=== PATIENT | female | born 1985 | race Caucasian/White ===

== ENCOUNTER → 2021-01-26 10:44 | Outpatient (BNVA) | payer OTHER, SELFPAY | PROVIDERS: PCP Nurse Practitioner Family; Visit Provider Obstetrics & Gynecology | DX: Z01.812 Encounter for preprocedural laboratory examination (principal); E28.2 Polycystic ovarian syndrome; N93.9 Abnormal uterine and vaginal bleeding, unspecified | CPT/HCPCS: 87635 ==

== ENCOUNTER 2021-02-02 11:12 | Observation (INO) | payer OTHER, SELFPAY ==
[2021-01-10 12:01] VITALS: BMI 40.6
--- NOTE | 2021-01-10 14:49 | P.ANESASSM_ITS ---
Pre-Anesthetic Assessment Pre-Anesthetic Assessment: Height/Weight: Height 1.63 m Weight 107.501 kg Proposed Procedure: Operation Date: 02/02/21 07:00 Proposed Procedures p Laparoscopic assisted vaginal hysterectomy with bilateral salpingectomy (79709) N93.9 E28.2(Not Applicable) - John Barroso MD Was Beta Rhett taken within 24 hours: N/A Social: Social History: No alcohol and No tobacco Exam: Pre-Anes Outpt Exam: alert, oriented x 3, clear to auscultation bilaterally and regular rate & rhythm Airway: Submandibular: WNL Cervical ROM: WNL MP: 2 Dentition: Full Metabolic: Metabolic: Morbid obesity Neuropsych: Neuropsych: Depression Anesthetic Plan: ASA status: 2 Anesthesia: General Other: H/O PONV Risk of > 500 ml blood loss (7ml/kg in children): Yes, adequate IV access and fluids planned PFSH Anesthesia PFSH: Medical History Anxiety and depression Diagnosed in 2016 and is on Prozac managed by her primary care provider No pertinent past medical history Denies diabetes, asthma, hypertension, seizures, DVT/PE PCP: Dr. Chen PCOS (polycystic ovarian syndrome) Diagnosed with PCOS in 2013 as she had oligomenorrhea and increased hair growth. She was placed on metformin in December 2014 which she self discontinued in April 2015. --- 06/22/2019-TSH 1.48, prolactin-8.3-normal -Sonogram on 07/01/2019-----> enlarged multi follicular ovaries consistent with PCOS, normal uterus Surgical History S/P carpal tunnel release Right side, outpatient by Dr. Montenegro S/P laparoscopy with hysteroscopy/dilation and curettage Done on 09/16/[address] Navas at the [facility] for evaluation of pelvic pain, dyspareunia, DUB. Operative report has been obtained and reviewed. On laparoscopy no intra-abdominal pathology was identified and free spillage of dye was noted from bilateral tubes. Ovaries had typical appearance of PCOS per Dr. Navas. On hysteroscopy no endocervical or endometrial abnormalities were identified. D&C was performed. Pathology of D&C showed benign proliferative endometrium without atypia, hyperplasia or malignancy. Fragments of benign rectal and endocervical tissue was also identified. (The operative report has been scanned in to the EHR) S/P tympanostomy tube placement at age 5 or 6 Status post tonsillectomy and adenoidectomy at age 5 or 6. Performed in [place] per patient. Family History (Updated 12/11/20 @ 11:07 by John Barroso MD) Family/Other Colon cancer paternal great grandmother, diagnosed in her 50s Uterine cancer maternal aunt, age at diagnosis unknown Mother Hypertension Grandmother Stroke paternal Thyroid condition paternal Diabetes paternal Uterine cancer maternal, diagnosed in her 30s Grandfather Diabetes paternal Father Hyperlipidemia Diabetes Hypertension Denies family history of Ovarian cancer Heart disease Breast cancer Social History Smoking and tobacco status: never smoked Female Reproductive History: Date of last menstrual period: 10/30/20 Data Anesthesia Cardiac Studies: No Data to Display
[2021-02-02] VITALS (21 sets, daily range): BP systolic 80–159; BP diastolic 66–126; PULSE 85–109; RESP 9–21; TEMP 36.3–37.2; O2SAT 90–98
[2021-02-02 06:12] LABS: OR HCG Qualitative Urine Negative (Negative)
[2021-02-02] MEDS: scopolamine 1.5 Patch 1 PATCH TRANSDERMA (06:28)
--- NOTE | 2021-02-02 06:30 | P.ANESUD_ITS ---
Pre-Anesthetic Update Pre-Anesthetic Assessment: Date of Surgery/Procedure: 02/02/21 Preop Mouna gnosis: AUB Proposed Procedure: Operation Date: 02/02/21 07:00 Proposed Procedures p Laparoscopic assisted vaginal hysterectomy with bilateral salpingectomy (78767) N93.9 E28.2(Not Applicable) - John Barroso MD Any changes to Pre-Anesthetic Assessment?: No Last Intake: Intake Last Liquid Date 02/01/21 Last Liquid Time 19:30 Last Solid Date 02/01/21 Last Solid Time 19:30 Labs Last 48hrs: Laboratory Results - last 48 hr 02/02/21 06:00 Urine HCG, Qual Negative Vitals: Temperature 97.4 F L 02/02/21 06:17 Temperature Source Temporal Artery S can 02/02/21 06:17 Pulse Rate 92 02/02/21 06:17 Respiratory Rate 16 02/02/21 06:17 Blood Pressure 132/82 02/02/21 06:17 Blood Pressure Deena n 98 02/02/21 06:17 Oxygen Delivery Me thod 02/02/21 06:17 Exam: Pre-Anes Outpt Exam: alert, oriented x 3, clear to auscultation bilaterally and regular rate & rhythm Cardiac Studies: No Data to Display
[2021-02-02] MEDS: sodium chloride 0.9% 1,000 ML 30 ML IV (06:35)
[2021-02-02] MEDS: diphenhydrAMINE 50 mg/mL SDV 1mL 12.5 MG IVP (06:40)
--- NOTE | 2021-02-02 06:55 | P.HPUD_ITS ---
Surgery/Procedure H&P Update DATE OF PROCEDURE: February 02, 2021 DATE H&P PERFORMED: 01/10/21 H&P UPDATE INFORMATION: I have reviewed H&P completed within last 30 days, I have examined patient prior to procedure, No changes to prior documentation and H&P is in [facility] EMR on date indicated PREOP DIAGNOSIS: AUB PLANNED PROCEDURE: Operation Date: 02/02/21 07:00 Proposed Procedures p Laparoscopic assisted vaginal hysterectomy with bilateral salpingectomy (81111) N93.9 E28.2(Not Applicable) - John Barroso MD
[2021-02-02 06:56] LABS: Basophils % 0.4 %; Eosinophils # 0.1 10^3/uL (0.0-0.8); Eosinophils % 1.4 %; Hematocrit 41.2 % (37.0-47.0); Hemoglobin 13.6 g/dL (11.5-15.3); Lymphocytes # 1.6 10^3/uL (0.8-4.8); Lymphocytes % 28.1 %; Mean Corpuscular Hemoglobin 28.6 pg (28.0-34.0); Mean Corpuscular Volume 86.6 fL (81-99); Mean Platelet Volume 9.9 fL (7.4-10.4); Monocytes # 0.5 10^3/uL (0.2-0.9); Neutrophils # 3.46 10^3/uL (1.8-7.7); Neutrophils % 61.6 %; Nucleated Red Blood Cells % 0 %; Platelet Count 197 10^3/cmm (130-400); Red Blood Count 4.76 10^6/uL (4.1-5.3); Red Cell Distribution Width 12.6 % (12.1-15.1); White Blood Count 5.6 10^3/uL (4.0-10.0)
--- NOTE | 2021-02-02 07:59 | SUR.OPER ---
notified of start and surgical progress
[2021-02-02] MEDS: vasopressin 20 unit/mL INJ (08:23)
[2021-02-02] MEDS: fentaNYL 50 mcg/mL INJ 2mL IVP (10:30)
--- NOTE | 2021-02-02 10:32 | P.OP_ITS ---
Operative Report Date of procedure: February 02, 2021 OPERATIVE REPORT Date of surgery: 02/02/2021 Date of dictation: 02/02/2021 Preoperative diagnosis: AUB, PCOS Postoperative diagnosis/findings: 8-week size anteverted bulky uterus, normal tubes and ovaries bilaterally, no intra-abdominal lesions, on cystoscopy no lesions defects or suture noted, bilateral ureteral jets x4 noted. Procedure done: Laparoscopic assisted vaginal hysterectomy, bilateral salpingectomy, cystoscopy Specimens removed/disposition of specimens: Uterus, cervix bilateral fallopian tubes Surgeon: Dr. John Alberto account management assistant: Sabina Palomares Anesthesia: General endotracheal tube anesthesia Estimated blood loss: 400 ml Intravenous fluids: 1 L of LR Urine output: 200 mL of clear urine at the end of procedure Medications: Per anesthesia records Complications:none PROCEDURE: After consents were obtained, she was taken to the operating room where she was placed under general endotracheal tube anesthesia without any difficulty. She was placed supine on the table in lithotomy position. Her legs were placed in stirrups and care was taken to avoid pressure points. Exam under anesthesia revealed [default value]. She was then prepped and draped in usual sterile fashion. Weighted speculum and anterior wall retractors were placed in the vagina, cervix visualized and grasped with a tenaculum. ZUMI uterine manipulator was placed into the uterus without any difficulty. Talamantes Catheter was placed, instruments were removed from the vagina and the legs were lowered. Attention was turned towards the abdomen where half percent Marcaine with epinephrine was injected in to her umbilicus. A 10 mm skin incision was made and a 10 mm port was placed through the umbilicus using an open technique--fascia was visualized elevated cut sharply and peritoneum was entered bluntly digitally and no adhesions were noted around site of entry. Everett trocar was placed and attached to fascia.. Once intra-abdominal entry was confirmed gas was turned on and intra-abdominal opening pressure was 2. The abdomen is insufflated until the pressure was 13. Survey of the abdomen showed findings noted above.. No other gross abnormality were identified. Two 5 mm trocar was placed into the right and left lower quadrant under direct visualization after injecting Marcaine. A 5 mm LigaSure was introduced into the abdomen and the left ovarian ligament was clamped, cauterized and then cut. No bleeding was noted. The voyant was used clamp cauterize and then cut the broad ligament under the fallopian tube and proceeding inferiorly just lateral to the uterus. The round ligament was also clamped, cauterized and cut. In this way the left fallopian tube, ovary and left side of the uterus was from the parametria. This was continued to the level just above the cervix. The same procedure was repeated on the right side and using the voyant -the right ovarian ligament, fallopian tube and round ligament were grasped, cauterized and cut. Good hemostasis was noted.The right-side of the uterus was thus freed from the parametria in a similar fashion. The ureters were visualized bilaterally well away from site of surgery. Next the anterior bladder flap was created and the bladder was pushed down. The uterine artery on both sides were visualized, clamped and cauterized. She did have some oozing near the site of left uterine artery near the lower uterine segment and decision was made to obtain hemostasis at this point vaginally. At this point all instruments were taken out of the abdomen, gas was turned off, abdomen was covered with a sterile drape and attention was turned towards the vagina. Patient's legs were raised, weighted speculum placed and cervix was grasped on the anterior and posterior lips with single-toothed tenaculum. 4 Units of Pitressin diluted in 10 mL of saline was injected around the cervix for hydrodissection on all sides. A scalpel was used to make an incision starting posteriorly and then extending anteriorly around the cervix. Perry scissors was then used to separate the overlying tissue from the cervix. The overlying tissue was also pushed back bluntly using a 4 x 4 gauze. Attention was turned posteriorly where pickups with teeth and Metzenbaum scissors was used to grasp the peritoneum and peritoneal cavity was entered. This peritoneal incision was extended laterally using the Metzenbaum scissors. A long weighted speculum was placed intraperitoneally thus protecting the rectum. Dave-[place] clamps we re used first on the right and then the left to clamp and then cut the paracervical tissue. Then we clamped, cut and sutured both right and left uterosacral ligaments with a Dave clamp. This process was repeated again proceeding up the cervix. The bladder was held up, peritoneum was identified and intraperitoneal entry anteriorly was made. A vaginal retractor was placed into the peritoneum thus protecting the bladder from site of surgery. Care was taken to stay medial and to avoid the bladder. The next bite that was placed clamped and then cut the already cauterized uterine artery on the right and then on the left side. These pedicles were were tied and the stitches were cut. Good hemostasis was achieved. With this, the uterus, bilateral tubes and ovaries, was freed, taken out and sent to pathology. The pedicles in the pelvis was visualized and good hemostasis was noted. The posterior vaginal cuff was noted to be bleeding and was oversewn , attaching the peritoneum to the vaginal cuff with 0 Vicryl in a continuous interlocking fashion. Good hemostasis was achieved. Cystoscopy was performed with a 70? cystoscope and bilateral ureteral jets were visualized x 3 as well as no suture , lesion or defect was noted in the bladder wall or urethra. Cystoscope was removed, bladder drained and Talamantes catheter was replaced. The angles of the vaginal cuff were grasped with Allis clamps and the angles were held in place. 0 Vicryl was used to close the vaginal cuff in a horizontal fashion using interrupted [id number] sutures. The vaginal cuff was closed and no defects were noted attention was turned to the Vicryl sutures holding the uterosacral ligaments. The sutures were right and left uterosacral ligaments were tied together thus suspending the apex of the vagina. Good support was noted. Attention was turned towards the abdomen at this time and patient's legs were lowered. Abdomen was insufflated to a pressure of 13 and the camera was placed in the abdomen. Sites of surgery were visualized and were noted to be hemostatic. The vaginal cuff was intact and no bowel or omentum was noted to be involved with the vaginal cuff suture line. Surgicel was placed over the vaginal cuff. Good hemostasis was noted. All instruments removed from the abdomen and the abdomen was desufflated. Trochars were removed with the blunt probe in place. The fascia on the umbilicus was closed with 0 Vicryl on a UR needle and good approximation was obtained. The skin incision on all 3 ports was closed with 4-0 Monocryl in a subcuticular fashion. Good reapproximation and hemostasis was noted. Marcaine was injected on the port sites. The incisions were dressed with Steri-Strips, Telfa and Tegaderm. 1 inch vaginal packing with lubrication was placed into the vagina. A Talamantes cat heter was kept in place. The patient was extubated without any difficulty and taken to the recovery room in a stable condition. This documentation was created by [employer] print designer software (known for inherent print designer error). Every effort was made to assure accuracy of print designer. Any obvious errors or omissions should be clarified with the author of the document. Pre-op Diagnosis: AUB
--- NOTE | 2021-02-02 11:36 | SUR.PHASEI ---
1021 PT TO PACU SLEEPING WITH ORAL AIRWAY IN PLACE, GOOD RESP EFFORT NOTED, VSS ABD LARGE SOFT VILLELA TO DD WITH STATLOCK TO RT THIGH YELLOW URINE NOTED IN BAG AND TUBING, 1030 PT AWAKE RESTLESS, CRYING OUT C/O OF PAIN TO ABD OF 9 SEE MED GIVEN 1045 PT SEDATED SINCE FENTANYL, MANUAL ASSIST TO KEEP AIRWAY OPEN, PT AWAKES, ELIZABETH OUT THAT PAIN IS UNBEARABLE THEN BACK TO SLEEP SNORING AND OBSTUCTS, MANUAL ASSIST USED TO KEEP AIRWAY OPEN THEN PT AWAKES AND STATES PAIN IS 10 THEN BACK TO SLEEP
--- NOTE | 2021-02-02 11:39 | SUR.PHASEI ---
1105 IF PT NOT DISTURBED PT SLEEPS AND SNORING RESP , BUT PT AWAKES TO BP OR VOICE AND RATES PAIN (UNBEARABLE) THEN QUICKLY BACK TO SLEEP REPORT CALLED TO FLOOR AND PT TO GET PO PAIN MED ON ADMIT, PT OK WITH THIS PLAN, PT ON 3LNC TO KEEP SATS AT 93-94% VSS.
[2021-02-02] MEDS: ibuprofen 800 mg tablet PO ×2 (11:49→18:28)
[2021-02-02] MEDS: HYDROcodone-acetaminophen 5-325 mg Tablet PO ×2 (11:50→21:58)
[2021-02-02] MEDS: dextrose 5%-lactated ringers 1,000 ML 125 ML IV ×2 (11:51→18:28)
[2021-02-02] MEDS: ondansetron 2 mg/ML SDV 2 mL 4 MG IVP ×2 (14:25→18:39)
[2021-02-02] MEDS: morphine 4 mg/mL SDV 1 mL 2 MG IVP (14:55)
--- NOTE | 2021-02-02 15:21 | ANE.PACU2 ---
Inpatient post-anesthesia follow up: Airway intact: Yes Vital signs: Temperature 97.9 F Pulse Rate 91 Respiratory Rate 16 Blood Pressure 135/98 Pulse Oximetry 95 Oxygen Delivery Me thod Nasal Cannula Oxygen Flow Rate 2 Fraction of Inspir ed Oxygen Hydration adequate: Yes Nausea and vomiting: No Pain level: 2 Mental status: Baseline
[2021-02-02] MEDS: docusate sodium 100 mg Capsule PO (18:28)
--- NOTE | 2021-02-02 18:38 | PC.NURSE ---
Vaginal packing removed. Very minimal bleeding noted.
[2021-02-02] MEDS: promethazine 25 mg/mL SDV 1 mL IM (21:58)
[2021-02-03] MEDS: ibuprofen 800 mg tablet PO ×2 (03:12→11:30)
--- NOTE | 2021-02-03 06:28 | PM.DCS ---
Discharge Providers Date of Admission: 02/02/21 11:12 Date of Discharge: February 03, 2021 Attending Provider at Admission: John Barroso MD Attending Provider at Discharge: John Barroso MD - Admission DIAGNOSIS: Abnormal uterine bleeding desiring surgical intervention Obesity with a BMI of 40 Anxiety and depression on medication, PCOS Discharge DIAGNOSIS: Status post LAVH, bilateral salpingectomy and cystoscopy on 02/02/2021 PROCEDURE: LAVH, bilateral salpingectomy and cystoscopy on 02/02/2021 Hospital course: She underwent an uncomplicated LAVH, bilateral salpingectomy and cystoscopy on 02/02/2021. She did well on postoperative day 0 and was ambulating well, tolerating clear liquid diet. Pain was well-controlled with by mouth and IV pain medication. She denied nausea, vomiting, fever, chills, shortness of breath, leg pain. She had minimal vaginal bleeding. Talamantes catheter was kept overnight and she had adequate urine output. On postoperative day #1 she continued to do well with stable vital signs and stable hemoglobin at 12.4. Talamantes catheter was removed and patient was able to void with minimal residual noted on bladder scan. She ambulated well started passing flatus and then tolerated a regular diet. She was discharged home on postoperative day #1 in a stable condition. Warning signs for wound infection, cuff infection, DVT/PE were reviewed with her. Post surgical activity restrictions were also reviewed with her at all her questions were answered to her satisfaction. This documentation was created by [employer] loin trimmer software (known for inherent loin trimmer error). Every effort was made to assure accuracy of loin trimmer. Any obvious errors or omissions should be clarified with the author of the document. Primary Care Provider: MARC Sevilla Reason for Visit Reason for Visit: Laparoscopic assisted vaginal hysterectomy with bi Physical Exam Urinary Catheter Management^: Talamantes: Cath Placed During This Visit: yes, but has since been removed by the nurse Reason for Continuing Indwelling Catheter: Perioperative Use in Selected Surgeries Urinary Catheter Date of Insertion: 02/02/21 Urinary Catheter Time of Insertion: 07:43 Date Urinary Catheter Removed: 02/03/21 Time Urinary Catheter Discontinued: 03:20 Discharge Data Data Completed and Pending: Pending at discharge Category Date Time Status ES surgery / GI i mages Routine Exams 02/02/21 06:41 Ordered Complete Blood Co unt w/Auto Timed Lab 02/03/21 05:35 Ordered Hemagram Timed Lab 02/03/21 05:00 Ordered Pathology: Surgic al [PTH] Routine Pth 02/02/21 09:52 Received Labs from last 24 hours 02/02/21 02/02/21 06:37 06:37 WBC 5.6 RBC 4.76 Hgb 13.6 Hct 41.2 MCV 86.6 MCH 28.6 MCHC 33.0 RDW 12.6 Plt Count 197 MPV 9.9 Neut % (Auto) 61.6 Lymph % (Auto) 28.1 Murray % (Auto) 8.0 Eos % (Auto) 1.4 Baso % (Auto) 0.4 Neut # (Auto) 3.46 Lymph # (Auto) 1.6 Murray # (Auto) 0.5 Eos # (Auto) 0.1 Baso # (Auto) 0.0 Nucleated RBC % (a uto) 0 Nucleated RBCs # 0.0 Blood Type O Positive Rho(D) Type Positive / 4+ Antibody Screen Negative Vitals: Last Vital Signs Temp 98.0 F 02/02/21 23:56 Pulse 95 02/02/21 23:56 Resp 19 H 02/02/21 23:56 BP 128/80 02/02/21 23:56 Pulse Ox 98 02/02/21 23:56 Discharge Plan Discharge Patient Disposition: Home Condition: Stable Prescriptions: New ibuprofen 800 mg tablet 800 mg PO Q8H Qty: 30 RF: 0 hydrocodone-acetaminophen 5-325 mg tablet 1 tab PO Q6H Qty: 25 RF: 0 docusate sodium 100 mg Capsule 100 mg PO BID PRN (Reason: constipation) Qty: 30 RF: 0 Continued buspirone 5 mg tablet 5 mg PO TID RF: 0 multivitamin Tablet 1 tab PO DAILY RF: 0 lutein 6 mg capsule 6 mg PO DAILY RF: 0 psyllium husk [Fiber (psyllium husk)] 0.4 gram capsule 0.4 g PO DAILY RF: 0 fluoxetine [Prozac] 40 mg capsule 40 mg PO DAILY RF: 0 Discharge Orders: Discharge Order (Routine); Ordered 02/03/21 Ordered By: John Barroso Referrals: John Barroso MD [Physician] - 02/13/21 2:15 pm (You have an appointment with Dr. Alberto on February 13 at 2:15 and March 14 at 12:15.) Patient Instructions: Hydrocodone/Acetaminophen (By mouth), Ibuprofen (By mouth), Laxative, Stool Softeners (By mouth), Laparoscopically Assisted Vaginal Hysterectomy (DC), Opioid Safety Activity Restrictions/Additional Instructions: Pelvic rest for 6 weeks, no heavy lifting for 6 weeks Discharge Attestations Time Spent in Discharge Care*: greater than 30 min Quality Metrics Clinical Quality Measures During this hospital stay, did patient experience: None Coding Level of Care Code Acute Chg FW DC note
--- NOTE | 2021-02-03 06:39 | PC.NURSE ---
Voiding Trial First void: 250mL, patient did not notify nurse of void, therefor bladder scan wasnt performed Second void: 200mL, bladder scan <15mL Third void: 150mL, bladder scan <30mL Notified Dr. Alberto by phone. Plan to dc today once patient passes gas, and tolerates regular diet.
[2021-02-03 07:03] LABS: Basophils % 0.1 %; Eosinophils % 0.1 %; Hematocrit 39.2 % (37.0-47.0); Hemoglobin 12.4 g/dL (11.5-15.3); Lymphocytes # 1.7 10^3/uL (0.8-4.8); Lymphocytes % 14.2 %; Mean Corpuscular HGB Conc 31.6 g/dL (30.0-36.0); Mean Corpuscular Hemoglobin 28.3 pg (28.0-34.0); Mean Corpuscular Volume 89.5 fL (81-99); Mean Platelet Volume 10.3 fL (7.4-10.4); Monocytes # 0.7 10^3/uL (0.2-0.9); Neutrophils # 9.32 10^3/uL (1.8-7.7); Neutrophils % 79.3 %; Nucleated Red Blood Cells % 0 %; Platelet Count 263 10^3/cmm (130-400); Red Blood Count 4.38 10^6/uL (4.1-5.3); Red Cell Distribution Width 12.7 % (12.1-15.1); White Blood Count 11.7 10^3/uL (4.0-10.0)
[2021-02-03 07:44] VITALS: BP 121/76; PULSE 87; RESP 18; TEMP 36.7; O2SAT 93
[2021-02-03] MEDS: docusate sodium 100 mg Capsule PO (09:32)
[2021-02-03] MEDS: HYDROcodone-acetaminophen 5-325 mg Tablet PO (09:34)
--- NOTE | 2021-02-03 10:50 | PC.NURSE ---
Pt has passed gas. Advanced to regular diet.
[2021-02-03 11:57] VITALS: BP 113/71; PULSE 82; RESP 18; TEMP 36.7; O2SAT 94
--- NOTE | 2021-02-03 13:21 | PC.CHAP ---
Pastoral Care Encounter/Spiritual Assessment Type of Contact [] Declined medical assistant prn visit [] Patient/Family/Request visit [] Outpatient visit [] Follow-up visit [] Physician referral [] Code/Alert [] Routine visit [] Staff referral [] Actively dying [] Patient sleeping [] Family support [] [] Out of room [] Palliative care [] [xx] Receiving care in room [] Pre-surgical visit [] Trauma [] Long length of stay [] ICU visit [] Other: Relational/Emotional Strength [] Patient feels connected with others/family/visitors/staff [] Distress [] Loneliness/isolation [] Abandonment Spirituality of Patient [] Person of Gala [] Attends Moravian of their Gala [] Believes in Prayer [] Reads Bible or Restorationist materials [] There are Spiritual issues to be addressed Aerospace Assembler Interventions [] Prayer [] Active listening [] Non-anxious presence [] Spiritual/emotional support [] Crisis/trauma care [] Spiritual counseling [] Bereavement support [] Provided bereavement packet [] Provided Bible/devotional materials [] Provided toy/stuffed animal, coloring book to patient or family member [] Provided Communion [] Anointing/[place] [] Salvation [] Completed spiritual assessment [] Other: Impact on Illness or Injury [] Angry [] Fearful [] Anxious [] Often cries [] Exhaustion [] Unable to work [] Unable to attend scientology [] Unable to walk/stand [] Unable to read [] Unable to drive [] Unable to eat/drink [] Unable to sleep [] Unable to be with family [] Patient intubated [] Other: Summary Pastoral care follow up needed. Time spent with patient
[2021-02-03 14:44] VITALS: BP 113/71; PULSE 82; RESP 18; TEMP 36.7; O2SAT 94
== END 2021-02-03 14:45 | disposition home or self-care (01) ==
LOC: MEDSURG 11:13
PROVIDERS: Admitting Provider Obstetrics & Gynecology; PCP Nurse Practitioner Family; Visit Provider Obstetrics & Gynecology
PROC: 0UT9FZZ Resection of Uterus, Via Natural or Artificial Opening With Percutaneous Endoscopic Assistance (ICD-10-PCS; CPT 58552; principal; 2021-02-02 07:00)
PROC: 0TJB8ZZ Inspection of Bladder, Via Natural or Artificial Opening Endoscopic (ICD-10-PCS; CPT 52000; 2021-02-02 07:00)
DX: N93.9 Abnormal uterine and vaginal bleeding, unspecified (principal); E28.2 Polycystic ovarian syndrome; E66.01 Morbid (severe) obesity due to excess calories; Z68.41 Body mass index [BMI] 40.0-44.9, adult
CPT/HCPCS: 58552; 36415; 81025; 84703; 85025; 86850; 86900; 88302; 88307; 96372; 96374; G0378; J0690; J1100; J1170; J1200; J2270; J2405; J2550; J2704; J3010; J3490; J7030

== ENCOUNTER 2021-02-24 10:01 | Outpatient (CLI) | payer OTHER, SELFPAY ==
[2021-02-24] MEDS: iohexol 300 mg/mL 50 mL Btl PO (10:19)
--- NOTE | 2021-02-24 11:30 | CT_ITS ---
WS: [id number] CT ABDOMEN AND PELVIS WITH CONTRAST HISTORY: N93.9 - Abnormal uterine and vaginal bleeding, unspecified. Recent hysterectomy. TECHNIQUE: Imaging performed of the abdomen and pelvis with IV contrast. Single phase imaging of the abdomen. Coronal and sagittal reformats are submitted. All CT scans at [facility] use at least one of these dose optimization techniques: automated exposure control; mA and/or kV adjustment per patient size (includes targeted exams where dose is matched to clinical indication); or iterativ e reconstruction. IV CONTRAST: Omnipaque 300; 95 mL IV. Oral contrast: Yes. DLP: 1910.6 mGy.cm COMPARISON: 01/05/2019 Lower thorax: Lung bases are clear. Heart is normal size. No hiatal hernia. Liver/biliary system: Normal size with no intrahepatic dilatation. Gallbladder: Normal. No gallstones or wall thickening. No pericholecystic fluid. Pancreas: Normal. Spleen: Normal. Adrenal glands: Normal. Right kidney: Normal. Left kidney: Normal. Aorta: Normal. Lymphadenopathy: None. Free fluid: None. GI tract: Normal appendix. No GI tract obstruction. No ischemic change. Abdominal wall: Unremarkable abdominal wall. No hernia. Pelvis: Status post recent hysterectomy. The RIGHT ovarian vein is dilated and contains thrombus. Beginning at its origin near the broad ligam ent the RIGHT ovary vein is dilated and contains a central filling defect with enhancement of the vei n wall. Filling defect extends from the ovary/broad ligament where it drains into the IVC. There is n o thrombus in the IVC at this time. There are a few adjacent small lymph nodes. There are also a few small filling defects within the mid LEFT ovarian vein although the LEFT ovarian vein is not as promi nent as the RIGHT. There is a very small fluid collection in the mid pelvis measuring 1.4 cm which is just to the RIGHT of midline which may be a postoperative seroma. Bones: Unremarkable. CT/CT abdomen pelvis w con* [id number] IMPRESSION: 1. Acute, diffuse RIGHT ovarian vein thrombosis. 2. Suspect more focal filling defects in the mid LEFT ovarian vein from thromb osis also. 3. Small fluid collection in the RIGHT pelvis is probably a postoperative rosa ofelia or seroma measuring maximum of 1.4 cm. Notified John Barroso MD at 02/24/2021 12:39 PM.
[2021-02-24] MEDS: iohexol 300 mg/mL 100 mL Btl IV (11:51)
== END 2021-02-24 10:02 | disposition home or self-care (01) ==
LOC: RAD 10:05
PROVIDERS: PCP Nurse Practitioner Family; Visit Provider Obstetrics & Gynecology
DX: N93.9 Abnormal uterine and vaginal bleeding, unspecified (principal); I82.890 Acute embolism and thrombosis of other specified veins
CPT/HCPCS: 74177

== ENCOUNTER 2021-07-12 14:23 | Outpatient (CLI) | payer OTHER, SELFPAY ==
--- NOTE | 2021-07-12 14:30 | CT_ITS ---
WS: [id number] CT ABDOMEN AND PELVIS WITH CONTRAST HISTORY: I82.890 - Acute embolism and thrombosis of other specified veins, pelvic vein thrombosis fol low-up. TECHNIQUE: Imaging performed of the abdomen and pelvis with IV contrast. Single phase imaging of the abdomen. Coronal and sagittal reformats are submitted. All CT scans at [facility] use at least one of these dose optimization techniques: automated exposure control; mA and/or kV adjustment per patient size (includes targeted exams where dose is matched to clinical indication); or iterativ e reconstruction. IV CONTRAST: Omnipaque 350; 95 mL IV. Oral contrast: No DLP: 1167.33 mGy-cm. COMPARISON: 02/24/2021 Lower thorax: Lung bases are clear. Heart is normal size. No hiatal hernia. Liver/biliary system: Liver is slightly enlarged with diffuse hepatic steatosis. Gallbladder: Normal. No gallstones or wall thickening. No pericholecystic fluid. Pancreas: Normal size pancreas and pancreatic duct. No adjacent inflammation. Spleen: Normal size spleen. No mass or infarct. Adrenal glands: Normal. Right kidney: Normal. Left kidney: Normal. Aorta: Normal. Previously described RIGHT ovarian vein thrombosis has essentially resolved. Small caliber RIGHT gona lilia vein. There is low-attenuation within the vein which may be due to chronic thrombosis. Very small caliber LEFT ovarian vein. No residual thrombus on the LEFT. Lymphadenopathy: None. Free fluid: None. GI tract: The appendix is normal. No GI tract obstruction. No wall thickening or mucosal edema. Abdominal wall: Unremarkable abdominal wall. No hernia. Pelvis: Prior hysterectomy. Both ovaries are identified. 2.0 cm cyst associated with the LEFT ovary. Previous the described complex collection in the RIGHT pelvis has resolved. No free fluid. Bones: Unremarkable. CT/CT abdomen pelvis w con* [id number] IMPRESSION: 1. Significant resolution of the bilateral ovarian vein thrombophlebitis. Ther e is a very small amount of low attenuation in the RIGHT ovarian vein near the ovary. Ovarian vein has decreased in size since the prior study and this may be chronic thrombosis that will not resolve. 2. Resolved RIGHT adnexal postoperative collection. 3. Hepatic steatosis.
[2021-07-12] MEDS: iohexol 350 mg/mL 100 mL Btl IV (14:48)
== END 2021-07-12 14:24 | disposition home or self-care (01) ==
PROVIDERS: PCP Nurse Practitioner Family; Visit Provider Obstetrics & Gynecology
DX: I82.890 Acute embolism and thrombosis of other specified veins (principal); K76.0 Fatty (change of) liver, not elsewhere classified
CPT/HCPCS: 74177; Q9967

== ENCOUNTER 2022-02-05 21:48 | Emergency (ER) | payer OTHER, SELFPAY ==
--- NOTE | 2022-02-05 21:50 | XRR_ITS ---
PROCEDURE INFORMATION: Exam: XR Chest Exam date and time: 02/05/2022 10:07 PM Age: 36 years old Clinical indication: Chest pressure; Patient HX: Chest pain; Additional info: Cp TECHNIQUE: Imaging protocol: XR of the chest. Views: 1 view. COMPARISON: CT abdomen pelvis w con* [id number] 07/12/2021 2:36 PM FINDINGS: Lungs: Unremarkable. No consolidation. Pleural spaces: Unremarkable. No pleural effusion. No pneumothorax. Heart/Mediastinum: Unremarkable. No cardiomegaly. Bones/joints: Unremarkable. XR/XR chest 1V portable [id number] IMPRESSION: No acute findings.
--- NOTE | 2022-02-05 21:50 | ECG_ITS ---
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 Measurements Intervals [place] Rate: 96 P: 50 SC: 168 QRS: 30 QRSD: 82 T: 19 QT: 320 QTc: 406 Interpretive Statements SINUS RHYTHM Poor anterior R wave progression No previous ECG available for comparison Electronically Signed On 02-06-2022 16:43:14 CDT by Elva Sim M.D. [id number]
[2022-02-05 21:51] VITALS: BMI 42.0
[2022-02-05 22:11] LABS: Basophils % 0.4 %; Eosinophils # 0.2 10^3/uL (0.0-0.8); Hematocrit 41.4 % (37.0-47.0); Hemoglobin 13.9 g/dL (11.5-15.3); Lymphocytes # 2.5 10^3/uL (0.8-4.8); Lymphocytes % 26.8 %; Mean Corpuscular HGB Conc 33.6 g/dL (30.0-36.0); Mean Corpuscular Volume 86.4 fl (81-99); Mean Platelet Volume 9.6 fL (7.4-10.4); Monocytes # 0.7 10^3/uL (0.2-0.9); Monocytes % 7.9 %; Neutrophils # 5.77 10^3/uL (1.8-7.7); Neutrophils % 62.6 %; Nucleated Red Blood Cells % 0 %; Platelet Count 254 10^3/cmm (130-400); Red Blood Count 4.79 10^6/uL (4.1-5.3); Red Cell Distribution Width 13.1 % (12.1-15.1); White Blood Count 9.2 10^3/uL (4.0-10.0)
--- NOTE | 2022-02-05 23:16 | ED_ITS ---
HPI - Chest Pain General: Chief Complaint: Chest Pain Stated Complaint: Chest Pain Time Seen by Provider: 02/05/22 22:41 Source: patient Mode of arrival: ambulatory Limitations: no limitations History of Present Illness: 36-year-old female who states she has been having chest pain throughout the day. States she had a constant pain is been a 4 out of 10 the left side of her chest. States the pain has been sharp and is went to her left shoulder she denies any diaphoresis denies any shortness of breath. She has no history of heart disease denies any known history in her family either. She is a non-smoker. Denies any worsening improving factors. Denies any abdominal pain. Associated symptoms: Deny abdominal pain, dyspnea, fever(s), nausea or vomiting Review of Systems Const: Denies: fever(s), chills, body aches or change in appetite Eyes: Denies: blurry vision or eye discomfort ENMT: Denies: throat pain or dental pain Card: Reports: chest pain Resp: Denies: dyspnea GI: Denies: abdominal pain, nausea, vomiting or diarrhea : Denies: dysuria Musc: Denies: neck pain or back pain Skin/Breast: Denies: rash Neuro: Denies: headache(s) Psych: Denies: depression Gamaliel/Lymph: Denies: easy bruising All/Imm: Denies: urticaria PFSH ED PFSH: Medical History Anxiety and depression Diagnosed in 2017 and is on Prozac managed by her primary care provider No pertinent past medical history Denies diabetes, asthma, hypertension, seizures, DVT/PE PCP: Dr. Chen PCOS (polycystic ovarian syndrome) Diagnosed with PCOS in 2013 as she had oligomenorrhea and increased hair growth. She was placed on metformin in December 2014 which she self discontinued in April 2015. --- 06/22/2019-TSH 1.48, prolactin-8.3-normal -Sonogram on 07/01/2019-----> enlarged multi follicular ovaries consistent with PCOS, normal uterus Surgical History S/P carpal tunnel release Right side, outpatient by Dr. Montenegro S/P laparoscopy with hysteroscopy/dilation and curettage Done on 09/16/[address] Navas at the [facility] for evaluation of pelvic pain, dyspareunia, DUB. Operative report has been obtained and reviewed. On laparoscopy no intra-abdominal pathology was iden tified and free spillage of dye was noted from bilateral tubes. Ovaries had typical appearance of PCOS per Dr. Navas. On hysteroscopy no endocervical or endometrial abnormalities were identified. D&C was performed. Pathology of D&C showed benign proliferative endometrium without atypia, hyperplasia or malignancy. Fragments of benign rectal and endocervical tissue was also identified. (The operative report has been scanned in to the EHR) S/P tympanostomy tube placement at age 5 or 6 Status post hysterectomy 02/02/2021---LAVH, bilateral salpingectomy performed by Dr. Alberto at [facility] for AUB. Pathology showed benign tubes with benign cervix and endometrium, adenomyosis and a small subserosal fibroid noted, weight-133 g Status post tonsillectomy and adenoidectomy at age 5 or 6. Performed in [place] per patient. Family History Family/Other Colon cancer paternal great grandmother, diagnosed in her 50s Uterine cancer maternal aunt, age at diagnosis unknown Mother Hypertension Grandmother Stroke paternal Thyroid condition paternal Diabetes paternal Uterine cancer maternal, diagnosed in her 30s Grandfather Diabetes paternal Father Hyperlipidemia Diabetes Hypertension Denies family history of Ovarian cancer Heart disease Breast cancer Social History Smoking and tobacco status: never smoked Female Reproductive History: Date of last menstrual period: 10/30/20 Physical Exam Const: COMMON NORMALS: no acute distress, patient oriented x3 and healthy appearing HENMT: COMMON NORMALS: normocephalic and atraumatic HEAD & SCALP: normocephalic and atraumatic Eye: COMMON NORMALS: Equal, round and reactive pupils present and EOMs intact bilaterally PUPIL: Yes Equal, round and reactive pupils present Neck/C-Spine: COMMON NORMALS: full ROM and supple Chest: COMMONS NORMALS: normal inspection of the chest and normal palpation of entire chest wall Resp: COMMON NORMALS: normal respiratory effort, No retractions, No use of accessory muscles and clear to auscultation bilaterally AUSCULTATION: clear to auscultation bilaterally Cardio: COMMON NORMALS: regular rate, regular rhythm and No murmurs present (Cardio) RATE: regular rate RHYTHM: regular rhythm GI: COMMON NORMALS: Normal to inspection, nondistended, normoactive bowel sounds present, Soft to palpation, non-tender and no masses PALPATION: Yes Soft to palpation Extremity: COMMON NORMALS: normal to inspection and full ROM Neuro: COMMON NORMALS: patient oriented x3, moves all extremities and no focal motor deficits Psych: COMMON NORMALS: mental status grossly normal, Normal thought process present and cooperative THOUGHT PROCESS: Normal thought process present Skin: COMMON NORMALS: no rashes or lesions noted and no wounds GENERAL SKIN EXAM: no rashes or lesions noted Course Vital Signs: Vital signs: Vital Signs Pulse Rate 94 02/06/22 01:53 Respiratory Rate 18 02/06/22 01:53 Blood Pressure 106/85 02/06/22 01:53 Pulse Oximetry 96 02/06/22 01:53 MDM - Chest Pain Medical Decision Making Patient presents here with chest pain is atypical in nature likely a costochondritis she is young healthy with no risk factors her initial repeat troponins here are negative no signs of acute coronary syndrome she has no shortness of breath no signs of dissection or pulmonary embolism she is to follow-up with her PCP in 2 to 4 days return if worsening she understands agrees to plan. Lab Data : 02/05/22 22:07 02/05/22 22:59 Laboratory Results WBC 9.2 10^3/uL (4.0-10.0) 02/05/22 22:07 RBC 4.79 10^6/uL (4.1-5.3) 02/05/22 22:07 Hgb 13.9 g/dL (11.5-15.3) 02/05/22 22:07 Hct 41.4 % (37.0-47.0) 02/05/22 22:07 MCV 86.4 fl (81-99) 02/05/22 22:07 MCH 29.0 pg (28.0-34.0) 02/05/22 22:07 MCHC 33.6 g/dL (30.0-36.0) 02/05/22 22:07 RDW 13.1 % (12.1-15.1) 02/05/22 22:07 Plt Count 254 10^3/cmm (130-400) 02/05/22 22:07 MPV 9.6 fL (7.4-10.4) 02/05/22 22:07 Neut % (Auto) 62.6 % 02/05/22 22:07 Lymph % (Auto) 26.8 % 02/05/22 22:07 [place] % (Auto) 7.9 % 02/05/22 22:07 Eos % (Auto) 2.0 % 02/05/22 22:07 Baso % (Auto) 0.4 % 02/05/22 22:07 Neut # (Auto) 5.77 10^3/uL (1.8-7.7) 02/05/22 22:07 Lymph # (Auto) 2.5 10^3/uL (0.8-4.8) 02/05/22 22:07 [place] # (Auto) 0.7 10^3/uL (0.2-0.9) 02/05/22 22:07 Eos # (Auto) 0.2 10^3/uL (0.0-0.8) 02/05/22 22:07 Baso # (Auto) 0.0 10^3/uL (0.0-0.1) 02/05/22 22:07 Nucleated RBC % (auto) 0 % 02/05/22 22:07 Nucleated RBCs # 0.0 /100WBC 02/05/22 22:07 Sodium 138 mmol/L (136-145) 02/05/22 22:59 Potassium 4.1 mmol/L (3.5-5.1) 02/05/22 22:59 Chloride 100 mmol/L (98-107) 02/05/22 22:59 Carbon Dioxide 26 mmol/L (22-29) 02/05/22 22:59 Anion Gap 16.1 (5-19) 02/05/22 22:59 BUN 11 mg/dL (6-20) 02/05/22 22:59 Creatinine 0.7 mg/dL (0.5-0.9) 02/05/22 22:59 GFR Calculation 95.2 mL/min (90-130) 02/05/22 22:59 Glucose 103 mg/dL (65-115) 02/05/22 22:59 Calculated Osmolality 286 mOsm/kg (285-295) 02/05/22 22:59 Calcium 10.2 mg/dL (8.5-10.5) 02/05/22 22:59 Total Bilirubin 0.2 mg/dL (0.15-1.2) 02/05/22 22:59 AST 18 U/L (0-32) 02/05/22 22:59 ALT 25 U/L (0-33) 02/05/22 22:59 Alkaline Phosphatase 97 IU/L (35-105) 02/05/22 22:59 Troponin T Baseline 7 ng/L (0-10) 02/05/22 22:59 Troponin T 120 Minute 6.00 ng/L (0-10) 02/06/22 00:37 Delta Troponin T -1.00 ABS# (0-10) L 02/06/22 00:37 Total Protein 7.0 g/dL (6.6-8.7) 02/05/22 22:59 Albumin 4.7 g/dL (3.5-5.2) 02/05/22 22:59 Globulin 2.3 g/dL (1.3-4.6) 02/05/22 22:59 EKG Data EKG 1: I personally reviewed and interpreted this EKG as follows: EKG interpretation date: 02/05/22 EKG interpretation time: 21:55 Interpretation: nsr hr [address] or t wave abnormalities qrs 82 qtc 374 Discharge Plan Discharge Patient Disposition: Home Clinical Impression: Chest pain Qualifiers: Chest pain type: unspecified Qualified Code(s): R07.9 - Chest pain, unspecified Condition: Stable Prescriptions: No Action buspirone 5 mg tablet 5 mg PO TID PRN0RF omega-3 fatty acids 1,000 mg capsule 1,000 mg PO DAILY 0RF Joint Supplement PO 0RF fluoxetine [Prozac] 40 mg capsule 40 mg PO DAILY 0RF Discharge Orders: Discharge ED (Routine); Ordered 02/06/22 Ordered By: Skip Segovia Referrals: Rosaline López FNP [Primary Care Provider] - 1-3 days Discharge Diet: Advance as tolerated Discharge Activity: Resume usual activity Patient Instructions: Chest Pain (ED) Coding Level of Care Code ED 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
[2022-02-05 23:25] VITALS: BP 131/100; PULSE 94; RESP 15; O2SAT 95
[2022-02-05 23:30] LABS: Troponin(5th) Baseline 7 ng/L (0-10)
[2022-02-05 23:31] LABS: Alanine Aminotransferase 25 U/L (0-33); Albumin Level 4.7 g/dL (3.5-5.2); Alkaline Phosphatase 97 IU/L (35-105); Anion Gap 16.1 (5-19); Aspartate Amino Transferase 18 U/L (0-32); Blood Urea Nitrogen 11 mg/dL (6-20); Calcium 10.2 mg/dL (8.5-10.5); Carbon Dioxide 26 mmol/L (22-29); Chloride 100 mmol/L (98-107); Globulin 2.3 g/dL (1.3-4.6); Glomerular Filtration Rate 95.2 mL/min (90-130); Glucose 103 mg/dL (65-115); Osmolality Calculated 286 mOsm/kg (285-295); Potassium 4.1 mmol/L (3.5-5.1); Sodium 138 mmol/L (136-145); Total Bilirubin 0.2 mg/dL (0.15-1.2)
--- NOTE | 2022-02-05 23:41 | PC.NURSE ---
Pt. refused pain medication ,states that she is not a big fan of morphine. She also refused nausea medication, stating that she is not have nausea at this time.
--- NOTE | 2022-02-05 23:50 | ECG_ITS ---
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 Measurements Intervals [place] Rate: 100 P: 59 AL: 151 QRS: 35 QRSD: 90 T: 17 QT: 328 QTc: 424 Interpretive Statements SINUS TACHYCARDIA POSSIBLE LEFT ATRIAL ENLARGEMENT [-0.1mV P-WAVE IN V1/V2] POSSIBLE ANTERIOR MYOCARDIAL INFARCTION , PROBABLY OLD No previous ECG available for comparison Electronically Signed On 02-06-2022 16:45:20 CDT by Elva Sim M.D. [email or web address] [email or web address] centerVirtual [email or web address]/[id number]
[2022-02-06 01:53] VITALS: BP 106/85; PULSE 94; RESP 18; O2SAT 96
== END 2022-02-06 01:55 | disposition home or self-care (01) ==
PROVIDERS: Emergency Provider Emergency Medicine; PCP Nurse Practitioner Family
DX: R07.9 Chest pain, unspecified (principal)
CPT/HCPCS: 36415; 71045; 80053; 84484; 85025; 93005; 99283

== ENCOUNTER → 2022-07-24 11:04 | Outpatient (BNVA) | payer OTHER, SELFPAY | PROVIDERS: PCP Nurse Practitioner Family; Visit Provider Family Medicine | DX: Z51.81 Encounter for therapeutic drug level monitoring (principal); M25.50 Pain in unspecified joint | CPT/HCPCS: 80053; 85025; 85651; 86141; 86618; 86666; 86757 ==

== ENCOUNTER → 2022-11-20 14:08 | Outpatient (BNVA) | payer OTHER, SELFPAY | PROVIDERS: PCP Family Medicine; Visit Provider Family Medicine | DX: D68.9 Coagulation defect, unspecified (principal); K11.5 Sialolithiasis; Z90.3 Acquired absence of stomach [part of]; Z51.81 Encounter for therapeutic drug level monitoring | CPT/HCPCS: 80053; 83735; 85025; 85240; 85246; 85260 ==

== ENCOUNTER → 2023-03-13 11:37 | Outpatient (BNVA) | payer OTHER, SELFPAY | PROVIDERS: PCP Family Medicine; Visit Provider Family Medicine | DX: D68.9 Coagulation defect, unspecified (principal); F41.9 Anxiety disorder, unspecified; F32.9 Major depressive disorder, single episode, unspecified; Z51.81 Encounter for therapeutic drug level monitoring; E55.9 Vitamin D deficiency, unspecified; Z13.220 Encounter for screening for lipoid disorders; E53.8 Deficiency of other specified B group vitamins; Z90.3 Acquired absence of stomach [part of] | CPT/HCPCS: 80053; 80061; 82306; 82310; 82607; 82746; 83550; 83735; 83970; 84100; 84207; 84425; 85025 ==

== ENCOUNTER 2023-03-21 10:44 | Outpatient (CLI) | payer OTHER, SELFPAY ==
--- NOTE | 2023-03-21 11:52 | XR_ITS ---
WS: [id number] XR sacrum coccyx min 2V [id number] REASON FOR EXAM: Sacral pain FINDINGS: No acute fracture of the sacrum or coccyx. Normal sacroiliac joints. There is a deformity at the sacrococcygeal junction and displacement of the distal most coccygeal seg ment which by history is related to previous trauma. XR/XR sacrum coccyx min 2V [id number] IMPRESSION: No acute abnormality. Sequela of old injury as above.
--- NOTE | 2023-03-21 11:52 | XR_ITS ---
WS: [id number] XR cervical spine 3V* [id number] REASON FOR EXAM: Cervical radiculopathy FINDINGS: Straightening of the normal lordosis of the cervical spine. Normal odontoid. Normal vertebral bodies. Mild narrowing of the C4-C5 disc space. Remaining disc spaces are intact and relatively well-preserve d. 2.5 mm of anterolisthesis of C2 in relation to C3. 1 to 1.5 mm of anterolisthesis of C3 in relation t o C4. Facet joints unremarkable with normal alignment. XR/XR cervical spine 3V* [id number] IMPRESSION: Degenerative spondylosis as above.
--- NOTE | 2023-03-21 11:52 | XR_ITS ---
WS: [id number] XR lumbar spine 2-3V* [id number] REASON FOR EXAM: Lumbar radiculopathy FINDINGS: Relatively normal lumbar curvatures. No focal vertebral body abnormality. Mild narrowing of the L5-S1 disc space. Remaining disc spaces are intact and well preserved. No spondylolysis. No significant spondylolisthesis. XR/XR lumbar spine 2-3V* [id number] IMPRESSION: Mild degenerative spondylosis as above.
== END 2023-03-21 10:45 | disposition home or self-care (01) ==
LOC: RAD 10:59
PROVIDERS: PCP Family Medicine; Visit Provider Family Medicine
DX: M54.16 Radiculopathy, lumbar region (principal); M54.12 Radiculopathy, cervical region; M53.3 Sacrococcygeal disorders, not elsewhere classified; M47.816 Spondylosis without myelopathy or radiculopathy, lumbar region; M47.812 Spondylosis without myelopathy or radiculopathy, cervical region
CPT/HCPCS: 72040; 72100; 72220

== ENCOUNTER 2025-03-10 10:31 | Outpatient (CLI) | payer OTHER, SELFPAY ==
--- NOTE | 2025-03-10 10:30 | US_ITS ---
WS: [id number] US pelv w/transvag [id number] HISTORY: Pelvic Pain, hysterectomy. COMPARISON: None available. Status post hysterectomy. No midline mass. No mass at the vaginal cuff. No free fluid. Right ovary: 2.8 cm x 2.8 cm x 2.8 cm. Normal size and vascularity, no cystic or solid masses. There are a few small follicles associated with the ovary. Left ovary: 2.8 cm x 1.9 cm x 2.3 cm. Normal size and vascularity, no cystic or solid masses. Small LEFT ovarian follicles. No free fluid in the pelvis. US/US pelv w/transvag [id number] IMPRESSION: 1. Status post hysterectomy. 2. Bilateral ovarian follicles. 3. No ascites.
== END 2025-03-10 10:32 | disposition home or self-care (01) ==
PROVIDERS: PCP Family Medicine; Visit Provider Family Medicine
DX: R10.2 Pelvic and perineal pain (principal); Z90.710 Acquired absence of both cervix and uterus
CPT/HCPCS: 76830; 76856

== ENCOUNTER → 2025-08-11 10:17 | Outpatient (BNVA) | payer OTHER, SELFPAY | PROVIDERS: PCP Family Medicine; Visit Provider Family Medicine | DX: E55.9 Vitamin D deficiency, unspecified (principal); R53.81 Other malaise; R53.83 Other fatigue; Z98.84 Bariatric surgery status; Z00.00 Encounter for general adult medical examination without abnormal findings; Z51.81 Encounter for therapeutic drug level monitoring; D64.9 Anemia, unspecified; E53.8 Deficiency of other specified B group vitamins | CPT/HCPCS: 80053; 82306; 82525; 82607; 83550; 83735; 84439; 84443; 84630; 85025 ==

== ENCOUNTER 2025-09-16 11:34 | Outpatient (CLI) | payer SELFPAY ==
[2025-09-16 12:27] LABS: Iron 100 ug/dL (37-145)
[2025-09-17 14:49] LABS: Beef (27) IgE 0.88 kU/L; Beef Class 2; Lamb (F88) IgE 0.40 kU/L; Lamb Class 1; Pork (F26) IgE 0.37 kU/L
== END 2025-09-16 11:35 | disposition home or self-care (01) ==
LOC: LAB 11:34
PROVIDERS: PCP Family Medicine; Visit Provider Family Medicine
DX: Z00.00 Encounter for general adult medical examination without abnormal findings (principal); D64.9 Anemia, unspecified; R53.81 Other malaise; R53.83 Other fatigue; Z98.84 Bariatric surgery status; L29.9 Pruritus, unspecified
CPT/HCPCS: 36415; 83540; 84446; 84590; 84597; 86003; 86008

== ENCOUNTER 2025-11-03 11:35 | Outpatient (CLI) | payer OTHER, SELFPAY ==
--- NOTE | 2025-11-03 11:43 | XR_ITS ---
WS: [id number] Cervical spine, 7 views including both obliques and lateral views in flexion, extension and neutral position, 11/03/2025 Clinical Data: Cervical radiculopathy Comparison: Cervical spine, 03/21/2023 Findings: No compression fractures are seen. There is minimal disc narrowing at C4-C5. The obliques show no foraminal encroachment. No instability occurs on flexion or extension. There is no prevertebral soft tissue swelling. The odontoid is unremarkable. The soft tissues of the neck and the lung apices are normal. XR/XR cervical spine min 6V [id number] Impression: 1. Minimal disc narrowing at C4-C5. 2. No foraminal encroachment on oblique images. 3. No instability on flexion or extension.
== END 2025-11-03 11:36 | disposition home or self-care (01) ==
PROVIDERS: PCP Family Medicine; Visit Provider Family Medicine
DX: M54.12 Radiculopathy, cervical region (principal); M50.321 Other cervical disc degeneration at C4-C5 level
CPT/HCPCS: 72052

== ENCOUNTER → 2025-11-08 10:00 | Outpatient (BNVA) | payer OTHER, SELFPAY | PROVIDERS: PCP Family Medicine; Visit Provider Nurse Practitioner | DX: R09.81 Nasal congestion (principal) | CPT/HCPCS: 87400; 87426 ==